=== PATIENT | male | born 2000 | race Caucasian/White ===

== ENCOUNTER 2021-06-04 11:01 | Emergency (ER) | payer OTHER ==
[2021-06-04 11:18] VITALS: BP 129/62; PULSE 59; TEMP 97.9; BMI 21.2
== END 2021-06-04 13:19 | disposition home or self-care (01) ==
LOC: JERFT 11:01 → JER 11:01 → JERFT 13:19
PROC: 0HQGXZZ Repair Left Hand Skin, External Approach (ICD-10-PCS; principal; 2021-06-04)
DX: S61.012A Laceration without foreign body of left thumb without damage to nail, initial encounter (principal); W26.8XXA Contact with other sharp object(s), not elsewhere classified, initial encounter
CPT/HCPCS: 99282-25